=== PATIENT | male | born 1980 | race Caucasian/White ===

== ENCOUNTER 2016-09-10 12:56 | Emergency (ER) | payer SELFPAY ==
--- NOTE | 2016-09-14 08:25 | ER ---
ADMIT: 09/10/2016 RM/LOC: ER [facility] MR#: [id number] [id number] LINDA FLEMING [address] [place] [address] Emergency Room Report SEX: M AGE: 35 : 1980 DATE: 09/10/2016 ADDENDUM: This patient comes in because he has a sore area on his back. He has had an abscess before that had to be lanced. On physical exam, he does have an area that is about the size of a 50 cent piece. It is red and indurated and fluctuant. I placed bupivacaine to the area, made a small incision and expressed quite a bit of purulent drainage. I packed it with packing gauze. I wrote a prescription for Keflex and for 10 [address]. He is to follow up with his primary in 2 days to remove the packing. Please see my sheet. NGOZI Conway / Denilson Rapp MD / natalial JOB #: [id number] CC: Denilson Rapp MD, Attending Physician Travis Leahy MD, Family Physician
== END 2016-09-10 13:51 | disposition home or self-care (01) ==
LOC: ER 12:56
PROC: 0H96XZZ Drainage of Back Skin, External Approach (ICD-10-PCS; principal; 2016-09-10)
DX: L02.212 Cutaneous abscess of back [any part, except buttock and flank] (principal); G40.909 Epilepsy, unspecified, not intractable, without status epilepticus; F17.210 Nicotine dependence, cigarettes, uncomplicated; Z79.899 Other long term (current) drug therapy